=== PATIENT | female | born 1950 | race Caucasian/White ===

== ENCOUNTER 2021-09-29 08:45 | Day surgery (SDC) | payer OTHER, MEDICAID ==
[~2021-09-29] VITALS: Ht 147.3 cm; Wt 65.9 kg
[~2021-09-29 08:45] MED LIST: ASPIRIN 81 MG CHEWABLE TABLET PO ONE; CITA10TA99 PO; DIAZEPAM 5 MG TABLET PO ONE; DiphenhydrAMINE HCL 50 MG CAPSULE PO ONE; HEPARIN SODIUM 1000 UNITS/NS 1,000 ML ONE; IOHEXOL 300 MG/ML 100 ML VIAL ONE; IOHEXOL 300 MG/ML 150 ML VIAL ONE; IOHEXOL 300 MG/ML 50 ML VIAL ONE; LIDOCAINE/PF 1% 30 ML VIAL ONE; RISP2TAB45 PO; SODIUM BICARBONATE 50 MEQ/50 ML VIAL ONE; SODIUM CHLORIDE 0.9% 1,000 ML IV ONE; SODIUM CHLORIDE 0.9% 1,000 ML ONE
[2021-09-29 10:24] LABS: GLUCOMETER DEV NAME(LOC) SDS.; GLUCOSE,POINT OF CARE 89 MG/DL (70-110)
[2021-09-29 10:29] VITALS: BP 200/71
[2021-09-29] MEDS ORDERED: MIDAZOLAM HCL 2 MG/2 ML VIAL ONE (10:37)
[2021-09-29] MEDS ORDERED: FentaNYL CITRATE PF 100 MCG/2 ML VIAL ONE (10:37)
[2021-09-29] MEDS ORDERED: LIDOCAINE 1% 30 ML/SOD BICARB 8.4% 4 ML SQ ONE (11:00)
[2021-09-29] MEDS ORDERED: MIDAZOLAM HCL 2 MG/2 ML VIAL IVP ONE (11:00)
[2021-09-29] MEDS ORDERED: FentaNYL CITRATE PF 100 MCG/2 ML VIAL IVP ONE (11:00)
[2021-09-29] MEDS ORDERED: HEPARIN SODIUM 1000 UNITS/NS 1,000 ML IARTER ONE (11:00)
[2021-09-29] MEDS ORDERED: IOHEXOL 300 MG/ML 150 ML VIAL IARTER ONE (11:00)
[2021-09-29] MEDS ORDERED: HydrALAZINE HCL 20 MG/ML VIAL ONE (11:09)
[2021-09-29] MEDS ORDERED: HydrALAZINE HCL 20 MG/ML VIAL IVP ONE (11:15)
[2021-09-29 11:29] VITALS: BP 163/65
[2021-09-29] MEDS ORDERED: LUBI8CAP PO (12:12)
[2021-09-29] MEDS ORDERED: ATOR10TA84 PO (12:12)
[2021-09-29] MEDS ORDERED: PANT-31 PO (12:12)
[2021-09-29] MEDS ORDERED: CARV12 PO (12:12)
[2021-09-29] MEDS ORDERED: METF-1211 PO (12:12)
[2021-09-29] MEDS ORDERED: SUCR1TAB28 PO (12:12)
[2021-09-29] MEDS ORDERED: GABA-1181 PO (12:16)
[2021-09-29] MEDS ORDERED: SITA50 PO (12:16)
[2021-09-29] MEDS ORDERED: LEVO100 PO (12:16)
== END 2021-09-29 15:45 | disposition home or self-care (01) ==
LOC: CATHLAB 08:45
PROVIDERS: ATTEND Internal Medicine Interventional Cardiology
DX: R94.39 Abnormal result of other cardiovascular function study (principal); I10 Essential (primary) hypertension; E11.9 Type 2 diabetes mellitus without complications; E66.9 Obesity, unspecified; Z68.30 Body mass index [BMI] 30.0-30.9, adult; Z88.8 Allergy status to other drugs, medicaments and biological substances; Z79.899 Other long term (current) drug therapy; Z98.890 Other specified postprocedural states
CPT/HCPCS: 82962; 93005; 93458; 99152; C1760; J0360; J1644; J2250; J3010; J3490 ×2; J7030; Q9967 ×2